=== PATIENT | female | born 1975 | race Two or more races ===

== ENCOUNTER → 2019-12-27 | Emergency (ER) | payer MEDICAID, OTHER ==
[~2019-12-27] VITALS: Ht 177.8 cm; Wt 136.1 kg
[~2019-12-27] MED LIST: NAPR-223
[2019-12-27 19:57] VITALS: BP 131/71
== END | disposition home or self-care (01) ==
LOC: ER 19:44
DX: S39.012A Strain of muscle, fascia and tendon of lower back, initial encounter (principal); M54.32 Sciatica, left side; V49.9XXA Car occupant (driver) (passenger) injured in unspecified traffic accident, initial encounter; Y93.89 Activity, other specified; Y92.89 Other specified places as the place of occurrence of the external cause; Y99.8 Other external cause status
CPT/HCPCS: 72131